=== PATIENT | male | born 1980 ===

== ENCOUNTER 2020-03-18 07:39 | Outpatient (CLI) | payer BC, SELFPAY ==
[2020-03-21 12:29] LABS: SARS-CoV-2 Specimen Source Nasopharynx
[2020-03-21 12:31] LABS: Method Summary See Comments; SARS-CoV-2 RNA Undetected (Undetected)
== END 2020-03-18 07:59 ==
PROVIDERS: PCP Nurse Practitioner Family; Visit Provider Nurse Practitioner Family
DX: Z11.59 Encounter for screening for other viral diseases (principal)
CPT/HCPCS: U0003

== ENCOUNTER 2020-04-08 01:37 | Outpatient (CLI) | payer BC, SELFPAY ==
[2020-04-09 12:44] LABS: COVID-19 RT-PCR Result NEGATIVE (Negative)
== END 2020-04-08 01:57 ==
PROVIDERS: PCP Nurse Practitioner Family; Visit Provider Nurse Practitioner Family
DX: Z20.828 Contact with and (suspected) exposure to other viral communicable diseases (principal)
CPT/HCPCS: U0003

== ENCOUNTER 2020-06-26 10:13 | Outpatient (CLI) | payer BC, SELFPAY ==
[2020-06-27 19:22] LABS: COVID-19 RT-PCR UVMMC Result Negative (Negative)
== END 2020-06-26 10:33 ==
PROVIDERS: PCP Nurse Practitioner Family; Visit Provider Nurse Practitioner Family
DX: Z11.59 Encounter for screening for other viral diseases (principal)
CPT/HCPCS: U0003

== ENCOUNTER 2020-09-18 02:58 | Outpatient (CLI) | payer BC, SELFPAY ==
[2020-09-19 13:21] LABS: COVID-19 RT-PCR UVMMC Result Negative (Negative)
== END 2020-09-18 02:59 | disposition home or self-care (01) ==
LOC: LBO 02:58
PROVIDERS: PCP Nurse Practitioner Family; Visit Provider Nurse Practitioner Family
DX: Z20.822 Contact with and (suspected) exposure to COVID-19 (principal)
CPT/HCPCS: U0003